=== PATIENT | male | born 1955 | race Two or more races ===

== ENCOUNTER 2017-04-07 10:15 | Outpatient (CLI) | payer BC | END 2017-04-07 23:59 | disposition home or self-care (01) | LOC: WOU 10:15 | PROVIDERS: ATTEND Specialist | DX: L59.8 Other specified disorders of the skin and subcutaneous tissue related to radiation (principal); Z92.21 Personal history of antineoplastic chemotherapy; Z85.828 Personal history of other malignant neoplasm of skin; Z83.3 Family history of diabetes mellitus; Z80.3 Family history of malignant neoplasm of breast; Z79.82 Long term (current) use of aspirin; Z79.899 Other long term (current) drug therapy; I10 Essential (primary) hypertension; E78.5 Hyperlipidemia, unspecified; T81.30XA Disruption of wound, unspecified, initial encounter; T86.821 Skin graft (allograft) (autograft) failure | CPT/HCPCS: G0463 ==

== ENCOUNTER 2017-05-12 11:56 | Outpatient (CLI) | payer BC | END 2017-05-12 23:59 | disposition home or self-care (01) | LOC: WOU 11:56 | PROVIDERS: ATTEND Specialist | DX: L59.8 Other specified disorders of the skin and subcutaneous tissue related to radiation (principal); T81.30XA Disruption of wound, unspecified, initial encounter; T86.821 Skin graft (allograft) (autograft) failure; C44.42 Squamous cell carcinoma of skin of scalp and neck; F12.90 Cannabis use, unspecified, uncomplicated; E78.5 Hyperlipidemia, unspecified; I10 Essential (primary) hypertension | CPT/HCPCS: G0463 ==